=== PATIENT | female | born 1970 | race African-American/Black ===

== ENCOUNTER 2019-12-24 06:54 | Observation (INO) | payer BC ==
[2019-12-24] MEDS ORDERED: Lidocaine 1% w/Epinephrine 1:100K 20 ML VIAL ONE (07:58)
[2019-12-24] MEDS ORDERED: Lidocaine 1% PF 5 ML VIAL ONE ×2 (07:59→09:11)
[2019-12-24] MEDS ORDERED: HYDROcodone/Acetaminophen 5/325 mg Tablet ONE (08:47)
[2019-12-24] MEDS ORDERED: Bupivacaine 0.5% 10 ML VIAL ONE (08:47)
[2019-12-24] MEDS ORDERED: PROPOFOL 200 MG/20 ML VIAL ONE (09:11)
[2019-12-24] MEDS ORDERED: Dexamethasone 20 MG/5 ML VIAL ONE (09:11)
[2019-12-24] MEDS ORDERED: Ondansetron PF 4 MG/2 ML Vial ONE (09:11)
[2019-12-24] MEDS ORDERED: PHENYLEPHRINE-NS 100 MCG/ML 10 ML SYRINGE ONE (09:11)
[2019-12-24 09:53] LABS: #Basophils 0.1 thou/uL (0.0-0.2); #Eosinphils 0.3 thou/uL (0.0-0.7); #Lymphocytes 2.8 thou/uL (1.20-3.40); #Monocytes 0.6 thou/uL (0.11-0.59); #Neutrophils 5.2 thou/uL (1.40-6.50); %Basophils 0.6 % (0.0-1.0); %Lymphocytes 31.8 % (21.0-51.0); %Monocytes 6.3 % (0.0-10.0); %Neutrophils 58.3 % (42.0-75.0); Hemoglobin 14.5 g/dL (12.0-16.0); Mean Corpuscular HGB CONC 32.9 g/dL (32.0-36.0); Mean Corpuscular Hemoglobin 31.4 pg (27.0-31.0); Mean Corpuscular Volume 95.3 fL (78.0-98.0); Mean Platelet Volume 7.2 fL (7.4-10.4); Platelet Count 262 thou/uL (130-400); RBC Distribution Width 12.1 % (11.5-14.5); Red Blood Cell (RBC) Count 4.62 mill/uL (4.20-5.40); White Blood Cell (WBC) Count 8.9 thou/uL (4.8-10.8)
[2019-12-24 10:09] LABS: ALT (SGPT) 18 U/L (8-55); AST (SGOT) 21 U/L (5-34); Alkaline Phosphatase 90 U/L (40-110); Anion Gap 12 mmol/L (10-20); BUN (Urea Nitrogen) 14 mg/dL (7.0-18.7); Bilirubin, Total 0.2 mg/dL (0.2-1.2); Calc. Creatinine Clearance 0 mL/min (70-130); Calcium 8.7 mg/dL (7.8-10.44); Carbon Dioxide 24 mmol/L (22-29); Chloride 107 mmol/L (98-107); Estimated GFR-MDRD Greater than 90; Globulin 3.7 g/dL (2.4-3.5); Glucose 110 mg/dL (70-105); Potassium 4.2 mmol/L (3.5-5.1); Protein, Total 7.7 g/dL (6.0-8.3); Sodium 139 mmol/L (136-145)
--- NOTE | 2019-12-24 10:18 | RAD ---
3 VIEWS RIGHT HAND: Date: 12/24/2019 COMPARISON: None. HISTORY: Right hand trauma with pain. FINDINGS: Three views of the right hand show no evidence of acute fracture or dislocation. There is soft tissue swelling of the index finger. No radiopaque foreign body is seen. IMPRESSION: Soft tissue swelling without underlying osseous abnormality. POS: EAA
[2019-12-24] MEDS ORDERED: Morphine 4 MG/ML VIAL ONE (12:15)
[2019-12-24] MEDS ORDERED: Sodium Chloride 0.9% 1,000 ML IV SCH (14:00)
[2019-12-24] MEDS ORDERED: Ondansetron ODT 4 MG TAB SL PRN (14:00)
[2019-12-24] MEDS ORDERED: Ondansetron PF 4 MG/2 ML Vial IVP PRN (14:00)
[2019-12-24] MEDS ORDERED: Ketorolac Tromethamine 30 MG/ML VIAL IVP SCH (14:00)
[2019-12-24 14:18] VITALS: BMI 34.7
[2019-12-24] MEDS ORDERED: Morphine 4 MG/ML VIAL SLOW IVP SCH (17:00)
[2019-12-24] MEDS ORDERED: Fentanyl 100 MCG/2 ML VIAL ONE (17:06)
[2019-12-24] MEDS ORDERED: Neomycin-Polymyxin 1 ML AMP ONE (17:59)
[2019-12-24] MEDS ORDERED: Bupivacaine 0.25% HCL 30 ML VIAL ONE (17:59)
[2019-12-24] MEDS ORDERED: Bacitracin Zinc Ointment 30 gm TUBE ONE (17:59)
[2019-12-24] MEDS ORDERED: Bupivacaine HCl 0.5%/Epinephrine 1:200,000/PF 30 ml Vial ONE (17:59)
[2019-12-24] MEDS ORDERED: Ketorolac Tromethamine 30 MG/ML VIAL ONE (18:45)
[2019-12-24] MEDS ORDERED: Promethazine HCl 25 MG/ML VIAL SLOW IVP PRN ×2 (18:53→18:54)
[2019-12-24] MEDS ORDERED: Ondansetron HCl/PF 4 MG/2 ML Vial IVP PRN ×2 (18:53→18:54)
[2019-12-24] MEDS ORDERED: Promethazine HCl 25 MG/ML VIAL IM PRN ×2 (18:53→18:54)
[2019-12-24 20:32] VITALS: BP 161/94; TEMP 97.7
--- NOTE | 2019-12-24 20:43 | OP ---
DATE OF PROCEDURE: 12/24/2019 PREOPERATIVE DIAGNOSIS: Right index finger 10 cm open wound. 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 She was evaluated and she had intact light touch, flexor digitorum profundus and superficialis, some weak extension and she had a dorsal laceration just proximal to the PIP joint of 2 cm, palmar ulnar laceration spanning about 5 cm long and a palmar radial laceration 2 cm long. These had some jagged edges and thus should be debrided in the operating room. INJECTABLE: 20 mL of 0.5% Marcaine, 10 before incision and 10 after. ESTIMATED BLOOD LOSS: 5 mL. TOURNIQUET TIME: 7 minutes. FINDINGS: Neurovascular bundles intact, extensor tendon intact. DESCRIPTION OF PROCEDURE: After successful general endotracheal anesthesia, the limb was prepped and draped. Time-out was done appropriately and we gave the Marcaine as listed above. The limb was exsanguinated, tourniquet inflated to 250 mmHg pressure. We extended all incision to 1 cm distal and 0.5 cm proximal, first beginning with the ulnar palmar type incision and dissected down, did not penetrate the neurovascular bundle. The flexor tendon was intact. Likewise, we viewed the opposite side, midsagittal laceration of 5 cm, elevated, dissected down bluntly, saw the flexor tendon sheath not violated, and then we also visualized the neurovascular bundle, which was intact. The dorsal wound was extended, we visualized extensor tendon, 1 cm distal and proximal to it. It was intact, not violated. We debrided the wound edges with tenotomy scissor and subcutaneous fat with the same. We irrigated with a total of 2 L of approximately 650 mL in each incision with bulb syringe pressure, released the tourniquet, obtained hemostasis and she had a pink digit with 1 second refill. We closed all wounds with interrupted 4-0 nylon in simple pattern and the refill did not change, digit was pink. She left the operating room after getting Ancef with no evidence of anesthetic or operative complication. Job ID: [id number]
== END 2019-12-24 20:15 | disposition home or self-care (01) ==
LOC: ERS 06:54 → SJJU 10:16
PROVIDERS: ADMIT Orthopaedic Surgery Hand Surgery; ATTEND Orthopaedic Surgery Hand Surgery
PROC: 0HQFXZZ Repair Right Hand Skin, External Approach (ICD-10-PCS; principal; 2019-12-24)
DX: S61.210A Laceration without foreign body of right index finger without damage to nail, initial encounter (principal); G89.11 Acute pain due to trauma; W20.8XXA Other cause of strike by thrown, projected or falling object, initial encounter; Y93.89 Activity, other specified; Y92.238 Other place in hospital as the place of occurrence of the external cause; Y99.0 Civilian activity done for income or pay
CPT/HCPCS: 36415; 80053; 85025; 96361; 96365; 96372; 96375; G0378; J0670; J0690; J1100; J1885; J2270; J2405; J2704; J3010; J3490; S0020